=== PATIENT | female | born 1985 | race Caucasian/White ===

== ENCOUNTER 2017-07-14 06:13 | Inpatient (IN) | payer MEDICAID ==
[~2017-07-14 06:13] MED LIST: Citric Acid/Sodium Citrate Solution 30 ML Cup PO ONE; Lactated Ringers 1,000 ML IV SCH; Sodium Chloride 0.9% 10 ML Syringe FLUSH PRN; Tranexamic Acid 1,000 MG in Sodium Chloride 0.9% 100 ML IV PRN; ceFAZolin 2 GM in Premix Bag 1 BAG IV ONE
[2017-07-14] MEDS ORDERED: Ketorolac 30 MG/ML SDV IVPUSH ONE (06:14)
[2017-07-14] MEDS ORDERED: Morphine PF 1 MG/ML Amp ONE (06:14)
[2017-07-14] MEDS ORDERED: Ondansetron 4 MG/2 ML SDV IV ONE (06:14)
[2017-07-14] MEDS ORDERED: ePHEDrine 50 MG/ML SDV IV ONE (06:14)
[2017-07-14] MEDS ORDERED: Oxytocin/Normal Saline 30 UNIT/500 ML BAG IV ONE (06:14)
[2017-07-14] MEDS ORDERED: Lactated Ringers 1,000 ML IV ONE (06:14)
[2017-07-14] MEDS ORDERED: Oxytocin/Normal Saline 60 UNIT/1,000 ML BAG ONE (06:59)
[2017-07-14] MEDS ORDERED: Ibuprofen 800 MG Tab PO PRN (07:29)
[2017-07-14] MEDS ORDERED: Misoprostol 400 MCG (4 X 100 MCG TAB) RECTAL PRN (07:29)
[2017-07-14] MEDS ORDERED: Carboprost Tromethamine 250 MCG/1 ML Amp IM ONE (07:29)
[2017-07-14] MEDS ORDERED: Acetaminophen 325 MG Tab PO PRN (07:29)
[2017-07-14] MEDS ORDERED: Tranexamic Acid 1,000 MG in Sodium Chloride 0.9% 100 ML IV PRN (07:29)
[2017-07-14] MEDS ORDERED: Methylergonovine 0.2 MG/1 ML Amp IM PRN (07:29)
[2017-07-14] MEDS ORDERED: ePHEDrine 50 MG/ML SDV IVPUSH PRN (07:29)
[2017-07-14] MEDS ORDERED: Naloxone 2 MG/2 ML Syringe IVPUSH PRN (07:29)
[2017-07-14] MEDS ORDERED: diphenhydrAMINE 50 MG/ML SDV IVPUSH PRN (07:29)
[2017-07-14] MEDS ORDERED: Oxytocin/Normal Saline 30 UNIT/500 ML BAG IV SCH (08:00)
[2017-07-14] MEDS: Lactated Ringers 1,000 ML IV SCH ×2 (11:07→19:24)
[2017-07-14] MEDS: Simethicone 80 MG Tab.Chew PO SCH ×4 (11:10→21:18)
[2017-07-14] MEDS: Ketorolac 30 MG/ML SDV IVPUSH SCH ×2 (14:04→20:11)
[2017-07-14] MEDS: Ondansetron 4 MG/2 ML SDV IV PRN ×2 (14:14→20:15)
--- NOTE | 2017-07-14 16:31 | OR ---
DATE: 07/14/2017 PROCEDURE PERFORMED: Repeat low-transverse section. PREOPERATIVE DIAGNOSES: 1. 39 and 4/7 weeks' intrauterine . 2. 5, para 2-0-2-2. 3. Blood type A negative, rubella immune, group B strep negative. 4. History of x2. 5. History of therapeutic x2. 6. Anemia of with an admission hemoglobin of 10.7 as well as chronic iron-deficiency anemia. 7. Dental abscess. 8. Smoker. 9. History of gestational hypertension. 10.Late and insufficient care. POSTOPERATIVE DIAGNOSES: 1. 39 and 4/7 weeks' intrauterine . 2. 5, para 3-0-2-3. 3. Blood type A negative, rubella immune, group B strep negative. 4. History of x3. 5. History of therapeutic x2. 6. Anemia of with an admission hemoglobin of 10.7 as well as chronic iron-deficiency anemia. 7. Dental abscess. 8. Smoker. 9. History of gestational hypertension. 10.Late and insufficient care. 11.Delivery of viable female . BRIEF HISTORY: A 32-year-old female admitted for elective repeat section at term with the above-listed diagnosis, appropriately prepared and brought to the operating room. For the procedure, see history and physical for full details. CONSENT: Discussion was held with the patient, risk of of infection and plan for preoperative antibiotics, potential for significant bleeding or hemorrhage, and a blood transfusion may be required as well as its inherent risks. Discussed potential injury to skin, large blood vessels, nerves, veins, internal organs or other adjacent structures, even potential injury to the baby. Injury could be involving uterus, fallopian tubes, ovaries, intestines, bladder, or any other adjacent structures. She verbalized understanding. Appropriate consent forms were signed and can be found in the chart. SURGEON: Sienna Dave MD. BOTTLE ASSEMBLER: Pito Turner MD. SECOND TAKER OFF HEMP FIBER: Nanda Long MS-III PROCEDURE DETAILS: The patient was brought to the operating room and spinal anesthesia obtained. Medina indwelling catheter was then placed. Abdomen was prepped and draped in the normal sterile fashion. Pfannenstiel skin incision was made through the previous scar and carried down to the underlying fascia using cautery and blunt dissection. The fascia was incised in the midline and extended bilaterally with cautery. Superior fascial edge grasped with Piotr's, tented up, and rectus muscles dissected off bluntly and with cautery. Inferior fascial edge then grasped, tented up, and rectus muscles dissected off with cautery. The peritoneal cavity was entered with hemostats and proceeded with further blunt dissection. Medhat retractor was then placed and scarring on the uterus required creation of a bladder flap, which was carried out without incident. Low transverse uterine incision made with scalpel until the amniotic fluid sac was seen. Hysterotomy site extended using Castaneda method and the sac was then ruptured with Allis forceps. Attempted to bring the head up through the uterine incision; however, there was some difficulty, therefore vacuum assistance was called for and baby delivered readily thereafter. 's mouth and nose were bulb suctioned while the umbilical cord was doubly clamped and cut. Baby then taken over to the warmer for further evaluation. Placenta removed by manual extraction. Trailing membranes removed with ring forceps. Uterus cleaned with dry lap sponge, and hysterotomy site closed with a running lock suture of 0 Vicryl in the usual fashion. This layer was hemostatic, and a second layer was not indicated. Medhat retractor removed. Pericolic gutters cleared of all clots and debris hysterotomy site was irrigated and reinspected, and remained hemostatic due to bulging of the intestines. Peritoneal layer was closed with a running stitch of 0 Vicryl in the usual fashion. This layer was then irrigated and fascia closed with a running stitch of 0 looped PDS in the usual fashion. Subcutaneous tissues were then irrigated and any small bleeders controlled with cautery. Skin was closed with mani. The patient tolerated the procedure well. URINE OUTPUT: 350 mL clear. IV FLUIDS: 1600 mL of crystalloid. ESTIMATED BLOOD LOSS: 500 mL. FINDINGS: The baby was delivered at 8:17 a.m., she is a female, score of 9 and 9, weight 2795 g, 6 pounds 2 ounces, length 17-1/2 inches. DISPOSITION: Mother to remain in the PACU. Baby to go to the nursery for further care at this time. [facility] /[id number] [facility]
[2017-07-14] MEDS: Ferrous Sulfate 325 MG Tab PO SCH (21:18)
[2017-07-15] MEDS: Ketorolac 30 MG/ML SDV IVPUSH SCH (01:47)
[2017-07-15] MEDS: Prenatal Multivitamin with Calcium/Folic Acid/Iron Tab PO SCH (09:04)
[2017-07-15] MEDS: Docusate Sodium 100 MG Cap PO PRN (09:04)
[2017-07-15] MEDS: Ferrous Sulfate 325 MG Tab PO SCH ×2 (09:04→21:23)
[2017-07-15] MEDS: Acetaminophen/oxyCODONE 325-5 MG Tab PO PRN ×3 (09:05→21:23)
[2017-07-15] MEDS: Simethicone 80 MG Tab.Chew PO SCH ×4 (09:05→21:23)
--- NOTE | 2017-07-15 10:41 | PN ---
DATE: 07/15/2017 SUBJECTIVE: A 32-year-old, 5, now para 3-0-2-3, status post repeat section performed yesterday morning, and she is doing quite well. She has been up and ambulating, tolerating a regular diet. She feels she does not need the pain medications as often as they are ordered. She did use some Zofran last night for nausea. Medina catheter remains in place. She has not had a bowel movement. She is very anxious to get home and be with her other children and even requesting discharge today. No chest pain or shortness of breath. No symptoms of preeclampsia. No other concerns or complaints at this time. OBJECTIVE: Vital Signs: Temperature is 98.5, pulse 85, blood pressure 121/74, respiratory rate of 16, and O2 saturations 99% on room air. Heart: Regular without murmur. Lungs: Clear to auscultation bilaterally. Abdomen: Soft and nontender. Positive bowel sounds in the upper quadrants. Dressing is clean, dry, and intact. Extremities: No edema, erythema, or tenderness noted. LABORATORY DATA: Hemoglobin is down to 9.1, and platelets are down to 146. ASSESSMENT: 1. Status post repeat low transverse section without complications. 2. Iron-deficiency anemia, anemia of blood loss, and anemia of . 3. Smoker. PLAN: Continue routine postoperative cares. Anticipating discharge home tomorrow. Remove Medina catheter later today and allow her to get up and shower. Discussed with her the importance of making sure we stay on top of the pain and also that we need to make sure she continues to meet other discharge criteria. [facility] /[id number]
[2017-07-15] MEDS: Ibuprofen 800 MG Tab PO PRN (16:57)
[2017-07-16] MEDS: Ibuprofen 800 MG Tab PO PRN (04:05)
[2017-07-16] MEDS: Acetaminophen/oxyCODONE 325-5 MG Tab PO PRN ×2 (04:11→08:27)
[2017-07-16] MEDS: Ferrous Sulfate 325 MG Tab PO SCH (08:27)
[2017-07-16] MEDS: Prenatal Multivitamin with Calcium/Folic Acid/Iron Tab PO SCH (08:27)
[2017-07-16] MEDS: Docusate Sodium 100 MG Cap PO PRN (08:27)
[2017-07-16] MEDS: Simethicone 80 MG Tab.Chew PO SCH ×2 (08:34→12:26)
== END 2017-07-16 12:30 | disposition home or self-care (01) | DRG 765 ==
LOC: DL.OB 06:13 → OBSVTOIN 08:17
PROVIDERS: ADMIT Family Medicine; ATTEND Family Medicine
PROC: 10D00Z1 Extraction of Products of Conception, Low, Open Approach (ICD-10-PCS; principal; 2017-07-14)
DX: O34.211 Maternal care for low transverse scar from previous cesarean delivery (principal); D62 Acute posthemorrhagic anemia; Z37.0 Single live birth; N85.8 Other specified noninflammatory disorders of uterus; O99.334 Smoking (tobacco) complicating childbirth; F17.200 Nicotine dependence, unspecified, uncomplicated; O99.02 Anemia complicating childbirth; Z3A.39 39 weeks gestation of pregnancy; D50.9 Iron deficiency anemia, unspecified; O90.81 Anemia of the puerperium
CPT/HCPCS: 01961; 36415; 85025; 85027; 85461; 86850; 86900; 86901; A9270-GY; J0690; J1885; J2274; J2405; J2590; J2790; J7120

== ENCOUNTER 2020-10-31 09:58 | Inpatient (IN) | payer MEDICAID ==
[2020-10-31] MEDS ORDERED: Oxytocin/Normal Saline 30 UNIT/500 ML BAG IV ONE (09:59)
[2020-10-31] MEDS ORDERED: Oxytocin/Normal Saline 60 UNIT/1,000 ML BAG ONE (10:14)
[2020-10-31] MEDS ORDERED: Sodium Chloride 0.9% 10 ML Syringe FLUSH PRN (10:34)
[2020-10-31] MEDS ORDERED: Carboprost Tromethamine 250 MCG/1 ML Amp IM PRN (10:34)
[2020-10-31] MEDS ORDERED: Tranexamic Acid 1,000 MG in Sodium Chloride 0.9% 100 ML IV PRN (10:34)
[2020-10-31] MEDS ORDERED: Citric Acid/Sodium Citrate Solution 30 ML Cup PO ONE (10:34)
[2020-10-31] MEDS ORDERED: Oxytocin/Normal Saline 30 UNIT/500 ML BAG IV SCH (10:45)
[2020-10-31] MEDS ORDERED: Lactated Ringers 1,000 ML IV SCH ×3 (10:45→14:30)
[2020-10-31] MEDS ORDERED: Morphine PF 10 MG/10 ML SDV ONE (11:30)
[2020-10-31] MEDS ORDERED: Lactated Ringers 1,000 ML IV ONE (11:30)
[2020-10-31] MEDS ORDERED: Ketorolac 30 MG/ML SDV IVPUSH ONE (11:30)
[2020-10-31] MEDS ORDERED: Tranexamic Acid 1,000 MG in Sodium Chloride 0.9% 100 ML IV ONE (11:30)
[2020-10-31] MEDS ORDERED: ceFAZolin 2 GM in Premix Bag 1 BAG IV ONE (12:15)
[2020-10-31] MEDS ORDERED: diphenhydrAMINE 50 MG/ML SDV IVPUSH PRN (14:21)
[2020-10-31] MEDS ORDERED: Acetaminophen 325 MG Tab PO PRN (14:21)
[2020-10-31] MEDS ORDERED: Methylergonovine 0.2 MG/1 ML Amp IM PRN (14:21)
[2020-10-31] MEDS ORDERED: Acetaminophen/oxyCODONE 325-5 MG Tab PO PRN (14:21)
[2020-10-31] MEDS ORDERED: ePHEDrine 50 MG/ML SDV IVPUSH PRN (14:21)
[2020-10-31] MEDS ORDERED: Ondansetron 4 MG/2 ML SDV IVPUSH PRN (14:21)
[2020-10-31] MEDS ORDERED: Misoprostol 400 MCG (4 X 100 MCG TAB) RECTAL PRN (14:21)
[2020-10-31] MEDS ORDERED: Naloxone 2 MG/2 ML Syringe IVPUSH PRN (14:21)
[2020-10-31] MEDS: Simethicone 80 MG Tab.Chew PO SCH ×2 (17:00→21:34)
[2020-10-31] MEDS: Ketorolac 30 MG/ML SDV IVPUSH SCH (19:23)
[2020-10-31] MEDS: Docusate Sodium 100 MG Cap PO PRN (21:34)
[2020-11-01] MEDS: Ketorolac 30 MG/ML SDV IVPUSH SCH ×2 (01:05→08:02)
--- NOTE | 2020-11-01 07:30 | PCM.PNPP ---
<Nupur Bustamante H - Last Filed: 11/01/20 07:24> - General Info Date of Service: 11/01/20 Functional Status: Reports: Pain Controlled, Tolerating Diet, Ambulating. Denies: Urinating (Catheter still in place. ) - Review of Systems General: Reports: No Symptoms HEENT: Reports: No Symptoms Pulmonary: Reports: No Symptoms Cardiovascular: Reports: No Symptoms Gastrointestinal: Reports: Abdominal Pain (Mild incisional pain), Flatus Musculoskeletal: Reports: No Symptoms Skin: Reports: No Symptoms Psychiatric: Reports: No Symptoms - Patient Data Vital Signs - Most Recent: Last Vital Signs Temp 98.3 F 11/01/20 04:00 Pulse 84 11/01/20 04:00 Resp 16 11/01/20 04:00 BP 134/78 11/01/20 04:00 Pulse Ox 100 10/31/20 20:00 Weight - Most Recent: 86.183 kg I&O - Last 24 Hours: Intake & Output 10/31/20 11/01/20 11/01/20 22:59 06:59 14:59 Intake Total 3400 1000 Output Total 250 1400 Balance 3150 -400 Lab Results - Last 24 Hours: Laboratory Results - last 24 hr 10/31/20 10/31/20 10/31/20 Range/Units 10:20 10:43 10:43 WBC 8.1 (5.0-10.0) 10^3/uL RBC 2.99 L (4.2-5.4) 10^6/uL Hgb 9.8 L D (12.0-16.0) g/dL Hct 29.8 L (37.0-47.0) % MCV 99.7 D (80-100) fL MCH 32.8 (27.0-34.0) pg MCHC 32.9 L (33.0-35.0) g/dL Plt Count 144 L D (150-450) 10^3/uL Neut % (Auto) 72.3 (42.2-75.2) % Lymph % (Auto) 18.0 L (20.5-50.1) % Harris % (Auto) 8.4 H (2-8) % Eos % (Auto) 1.1 (1.0-3.0) % Baso % (Auto) 0.2 (0.0-1.0) % SARS-CoV-2 RNA (SOHAIL) Negative (NEGATIVE) Blood Type A NEGATIVE Gel Antibody Screen Negative 11/01/20 Range/Units 05:55 WBC 6.4 (5.0-10.0) 10^3/uL RBC 2.47 L (4.2-5.4) 10^6/uL Hgb 8.0 L D (12.0-16.0) g/dL Hct 24.7 L (37.0-47.0) % MCV 100.0 (80-100) fL MCH 32.4 (27.0-34.0) pg MCHC 32.4 L (33.0-35.0) g/dL Plt Count 160 (150-450) 10^3/uL Neut % (Auto) (42.2-75.2) % Lymph % (Auto) (20.5-50.1) % Harris % (Auto) (2-8) % Eos % (Auto) (1.0-3.0) % Baso % (Auto) (0.0-1.0) % SARS-CoV-2 RNA (SOHAIL) (NEGATIVE) Blood Type Gel Antibody Screen Med Orders - Current: Current Medications Acetaminophen (Acetaminophen 325 Mg Tab) 650 mg PO Q6H PRN PRN Reason: Mild Pain (1-3) or Fever Carboprost Tromethamine (Carboprost Tromethamine 250 Mcg/1 Ml Amp) 250 mcg IM ASDIRECTED PRN PRN Reason: Excessive vaginal bleeding Diphenhydramine HCl (Diphenhydramine 50 Mg/Ml Sdv) 25 mg IVPUSH Q6H PRN PRN Reason: Itching or Nausea Docusate Sodium (Docusate Sodium 100 Mg Cap) 100 mg PO Q12H PRN PRN Reason: Constipation Last Admin: 10/31/20 21:34 Dose: 100 mg Documented by: Ephedrine Sulfate (Ephedrine 50 Mg/Ml Sdv) 5 mg IVPUSH SEECOMMENT PRN PRN Reason: Other Tranexamic Acid 1,000 mg/ (Sodium Chloride) 110 mls @ 660 mls/hr IV ONETIME PRN PRN Reason: Bleeding Oxytocin/Sodium Chloride (Pitocin In Ns 30 Unit/500 Ml) 30 unit in 500 mls @ 2 mls/hr IV TITRATE [facility]; Protocol Last Titration: 10/31/20 15:30 Dose: 0 munits/min, 0 mls/hr Documented by: Lactated Ringer's (Ringers, Lactated) 1,000 mls @ 125 mls/hr IV ASDIRECTED [facility] Last Admin: 10/31/20 16:20 Dose: 125 mls/hr Documented by: Ibuprofen (Ibuprofen 800 Mg Tab) 800 mg PO Q8H PRN PRN Reason: Cramping Methylergonovine Maleate (Methylergonovine 0.2 Mg/1 Ml Amp) 0.2 mg IM ONETIME PRN PRN Reason: Excessive Vaginal Bleeding Misoprostol (Misoprostol 400 Mcg (4 X 100 Mcg Tab)) 800 mcg RECTAL ASDIRECTED PRN PRN Reason: Excessive bleeding Naloxone HCl (Naloxone 2 Mg/2 Ml Syringe) 0.1 mg IVPUSH SEECOMMENT PRN PRN Reason: Respiratory Depression Ondansetron HCl (Ondansetron 4 Mg/2 Ml Sdv) 4 mg IVPUSH Q4H PRN PRN Reason: Nausea/Vomiting Oxycodone/Acetaminophen (Acetaminophen/Oxycodone 325-5 Mg Tab) 1 tab PO Q4H PRN PRN Reason: Pain (moderate 4-6) Oxycodone/Acetaminophen (Acetaminophen/Oxycodone 325-5 Mg Tab) 2 tab PO Q4H PRN PRN Reason: Pain (moderate 4-6) Prenat Multivit/Case Assembler/Iron/Folic Ac ( Multivitamin With Calcium/Folic Acid/Iron Tab) 1 each PO DAILY [facility] Simethicone (Simethicone 80 Mg Tab.Chew) 160 mg PO QID [facility] Last Admin: 10/31/20 21:34 Dose: 160 mg Documented by: Sodium Chloride (Sodium Chloride 0.9% 10 Ml Syringe) 10 ml FLUSH ASDIRECTED PRN PRN Reason: Keep Vein Open Last Admin: 11/01/20 01:09 Dose: 10 ml Documented by: Discontinued Medications Citric Acid/Sodium Citrate (Citric Acid/Sodium Citrate Solution 30 Ml Cup) 30 ml PO ONETIME ONE Stop: 10/31/20 10:35 Last Admin: 10/31/20 11:21 Dose: 30 ml Documented by: Cefazolin Sodium/Dextrose (Ancef 2 Gm/50 Ml) Confirm Administered Dose 50 mls @ as directed .ROUTE .STK-MED ONE Stop: 10/31/20 10:15 Oxytocin/Sodium Chloride (Pitocin In Ns 30 Unit/500 Ml) Confirm Administered Dose 60 unit in 1,000 mls @ as directed .ROUTE .STK-MED ONE Stop: 10/31/20 10:15 Lactated Ringer's (Ringers, Lactated) 1,000 mls @ 125 mls/hr IV ASDIRECTED [facility] Last Admin: 10/31/20 11:27 Dose: 125 mls/hr Documented by: Lactated Ringer's (Ringers, Lactated) 1,000 mls @ 500 mls/hr IV .BOLUS [facility] Last Admin: 10/31/20 10:30 Dose: 500 mls/hr Documented by: Cefazolin Sodium/Dextrose 2 gm (/ Premix) 50 mls @ 100 mls/hr IV ONETIME ONE Stop: 10/31/20 12:44 Last Admin: 10/31/20 11:35 Dose: 100 mls/hr Documented by: Ketorolac Tromethamine (Ketorolac 30 Mg/Ml Sdv) 15 mg IVPUSH Q6H [facility] Stop: 11/01/20 07:01 Last Admin: 11/01/20 01:05 Dose: 15 mg Documented by: - Interaction Infant Disposition, : to Nursery Infant Feeding: Bottle Fed Infant Support Person: Significant Other - Recovery Exam Fundal Tone: Firm Fundal Level: 1 Fingerbreadths Below Umbilicus Fundal Placement: Midline Lochia Amount: Small Lochia Color: Rubra/Red Episiotomy/Laceration: None Bladder Status: Nonpalpable, Indwelling Catheter in Place Urinary Elimination: Indwelling Catheter - Exam General: Alert, Oriented, Cooperative, No Acute Distress HEENT: EOMI Neck: Supple Lungs: Clear to Auscultation, Normal Respiratory Effort Cardiovascular: Regular Rate, Regular Rhythm GI/Abdominal Exam: Normal Bowel Sounds, Soft, Tender (Mild) Extremities: Normal Inspection, Normal Range of Motion, Non-Tender, Pedal Edema (Trace) Skin: Warm Wound/Incisions: Healing Well, Dressing Dry and Intact, No Drainage, Other (Steri strips in place with moderate shadowing. Small shadowing present on dressing. No signs of infection. ). No: Erythema Psy/Mental Status: Alert, Normal Affect, Normal Mood - Problem List & Annotations (1) Status post repeat low transverse section SNOMED Code(s): 773436298, 99373494, 350675878, 548959701, 689119829 Code(s): Z98.891 - HISTORY OF UTERINE SCAR FROM PREVIOUS SURGERY Status: Acute - Problem List Review Problem List Initiated/Reviewed/Updated: Yes - Assessment Assessment:: Patient is POD #1 s/p RLTCS. Doing well. Formula feeding. Minimal pain and bleeding. - Plan Plan:: Continue routine post-operative cares. Formula Feeding Up to bathroom. Goal for catheter removal today if tolerates ambulation and urinates appropriately. Plan for discharge on POD#2-3. Patient was seen and evaluated by myself and Dr. Eulalia Lugo. Assessment and Plan is under advisement of Dr. Lugo. Nupur Bustamante MD PGY-II <Eulalia Lugo Anuradha - Last Filed: 11/08/20 13:30> - Patient Data Vital Signs - Most Recent: Last Vital Signs Temp 36.9 C 11/02/20 08:00 Pulse 96 11/02/20 08:00 Resp 20 11/02/20 08:00 BP 155/101 H 11/02/20 08:00 Pulse Ox 100 11/02/20 08:00 Med Orders - Current: Current Medications Discontinued Medications Acetaminophen (Acetaminophen 325 Mg Tab) 650 mg PO Q6H PRN PRN Reason: Mild Pain (1-3) or Fever Carboprost Tromethamine (Carboprost Tromethamine 250 Mcg/1 Ml Amp) 250 mcg IM ASDIRECTED PRN PRN Reason: Excessive vaginal bleeding Citric Acid/Sodium Citrate (Citric Acid/Sodium Citrate Solution 30 Ml Cup) 30 ml PO ONETIME ONE Stop: 10/31/20 10:35 Last Admin: 10/31/20 11:21 Dose: 30 ml Documented by: Diphenhydramine HCl (Diphenhydramine 50 Mg/Ml Sdv) 25 mg IVPUSH Q6H PRN PRN Reason: Itching or Nausea Docusate Sodium (Docusate Sodium 100 Mg Cap) 100 mg PO Q12H PRN PRN Reason: Constipation Last Admin: 11/01/20 08:00 Dose: 100 mg Documented by: Ephedrine Sulfate (Ephedrine 50 Mg/Ml Sdv) 5 mg IVPUSH SEECOMMENT PRN PRN Reason: Other Cefazolin Sodium/Dextrose (Ancef 2 Gm/50 Ml) Confirm Administered Dose 50 mls @ as directed .ROUTE .STK-MED ONE Stop: 10/31/20 10:15 Oxytocin/Sodium Chloride (Pitocin In Ns 30 Unit/500 Ml) Confirm Administered Dose 60 unit in 1,000 mls @ as directed .ROUTE .STK-MED ONE Stop: 10/31/20 10:15 Lactated Ringer's (Ringers, Lactated) 1,000 mls @ 125 mls/hr IV ASDIRECTED [facility] Last Admin: 10/31/20 11:27 Dose: 125 mls/hr Documented by: Lactated Ringer's (Ringers, Lactated) 1,000 mls @ 500 mls/hr IV .BOLUS [facility] Last Admin: 10/31/20 10:30 Dose: 500 mls/hr Documented by: Tranexamic Acid 1,000 mg/ (Sodium Chloride) 110 mls @ 660 mls/hr IV ONETIME PRN PRN Reason: Bleeding Oxytocin/Sodium Chloride (Pitocin In Ns 30 Unit/500 Ml) 30 unit in 500 mls @ 2 mls/hr IV TITRATE KVNG; Protocol Last Titration: 10/31/20 15:30 Dose: 0 munits/min, 0 mls/hr Documented by: Cefazolin Sodium/Dextrose 2 gm (/ Premix) 50 mls @ 100 mls/hr IV ONETIME ONE Stop: 10/31/20 12:44 Last Admin: 10/31/20 11:35 Dose: 100 mls/hr Documented by: Lactated Ringer's (Ringers, Lactated) 1,000 mls @ 125 mls/hr IV ASDIRECTED [facility] Last Admin: 10/31/20 16:20 Dose: 125 mls/hr Documented by: Oxytocin/Sodium Chloride (Pitocin In Ns 30 Unit/500 Ml) 30 unit in 500 mls @ as directed IV .STK-MED ONE Stop: 10/31/20 10:00 Lactated Ringer's (Ringers, Lactated) 1,000 mls @ as directed IV .STK-MED ONE Stop: 10/31/20 11:31 Tranexamic Acid 1,000 mg/ (Sodium Chloride) 110 mls @ as directed IV .STK-MED ONE Stop: 10/31/20 11:31 Ibuprofen (Ibuprofen 800 Mg Tab) 800 mg PO Q8H PRN PRN Reason: Cramping Last Admin: 11/02/20 04:14 Dose: 800 mg Documented by: Ketorolac Tromethamine (Ketorolac 30 Mg/Ml Sdv) 15 mg IVPUSH Q6H [facility] Stop: 11/01/20 07:01 Last Admin: 11/01/20 08:02 Dose: 15 mg Documented by: Ketorolac Tromethamine (Ketorolac 30 Mg/Ml Sdv) 30 mg IVPUSH .STK-MED ONE Stop: 10/31/20 11:31 Methylergonovine Maleate (Methylergonovine 0.2 Mg/1 Ml Amp) 0.2 mg IM ONETIME PRN PRN Reason: Excessive Vaginal Bleeding Misoprostol (Misoprostol 400 Mcg (4 X 100 Mcg Tab)) 800 mcg RECTAL ASDIRECTED PRN PRN Reason: Excessive bleeding Morphine Sulfate (Morphine Pf 10 Mg/10 Ml Sdv) 0.2 mg .XX .STK-MED ONE Stop: 10/31/20 11:31 Naloxone HCl (Naloxone 2 Mg/2 Ml Syringe) 0.1 mg IVPUSH SEECOMMENT PRN PRN Reason: Respiratory Depression Ondansetron HCl (Ondansetron 4 Mg/2 Ml Sdv) 4 mg IVPUSH Q4H PRN PRN Reason: Nausea/Vomiting Oxycodone/Acetaminophen (Acetaminophen/Oxycodone 325-5 Mg Tab) 1 tab PO Q4H PRN PRN Reason: Pain (moderate 4-6) Oxycodone/Acetaminophen (Acetaminophen/Oxycodone 325-5 Mg Tab) 2 tab PO Q4H PRN PRN Reason: Pain (moderate 4-6) Last Admin: 11/02/20 08:27 Dose: 2 tab Documented by: Prenat Multivit/[place]/Iron/Folic Ac ( Multivitamin With Calcium/Folic Acid/Iron Tab) 1 each PO DAILY [facility] Last Admin: 11/02/20 08:27 Dose: 1 each Documented by: Simethicone (Simethicone 80 Mg Tab.Chew) 160 mg PO QID [facility] Last Admin: 11/02/20 08:27 Dose: 160 mg Documented by: Sodium Chloride (Sodium Chloride 0.9% 10 Ml Syringe) 10 ml FLUSH ASDIRECTED PRN PRN Reason: Keep Vein Open Last Admin: 11/01/20 01:09 Dose: 10 ml Documented by: - Plan Plan:: Victor Manuel with resident assessment and plan. Eulalia Lugo MD
[2020-11-01] MEDS: Prenatal Multivitamin with Calcium/Folic Acid/Iron Tab PO SCH (08:00)
[2020-11-01] MEDS: Simethicone 80 MG Tab.Chew PO SCH ×4 (08:00→21:01)
[2020-11-01] MEDS: Docusate Sodium 100 MG Cap PO PRN (08:00)
[2020-11-01] MEDS: Ibuprofen 800 MG Tab PO PRN (16:59)
[2020-11-01] MEDS: Acetaminophen/oxyCODONE 325-5 MG Tab PO PRN (21:01)
[2020-11-02] MEDS: Ibuprofen 800 MG Tab PO PRN (04:14)
[2020-11-02] MEDS: Acetaminophen/oxyCODONE 325-5 MG Tab PO PRN ×2 (04:15→08:27)
[2020-11-02] MEDS: Simethicone 80 MG Tab.Chew PO SCH (08:27)
[2020-11-02] MEDS: Prenatal Multivitamin with Calcium/Folic Acid/Iron Tab PO SCH (08:27)
--- NOTE | 2020-11-08 13:19 | PCM.HPR ---
H & P Addendum review - H & P Addendum Review Date of Original H & P: 10/30/20 Date Reviewed: 10/31/20 Time Reviewed: 10:15 Patient was Examined: No Changes
--- NOTE | 2020-11-08 13:29 | PCM.PRNOTE ---
- Free Text/Narrative Note: Section Operative Report Date of Surgery: 10/31/2020 Surgeon: Eulalia Lugo MD Cofounder: MD Nupur Oh, PGY2 Pre-Operative Diagnosis: at 39w0d History of section x3 Post-Operative Diagnosis: Same Stable uterine rupture Procedure Performed: Repeat low transverse section Anesthesia: Spinal EBL: 400 mL IVF: 1500 mL Drains: Mednia catheter with 125 mL of urine output Specimens: None Complications: None apparent Findings: Normal tubes and ovaries. Uterus with very thin lower uterine segment and 3 cm rupture with amniotic sac protruding into the abdominal cavity. Indication and Consent: The patient presented to floor today for scheduled at term due to history of prior and desire for elective repeat . The patient understood that the risks of section include, but are not limited to, visceral or vascular injury, infection, blood loss and need for blood transfusion, prolonged hospitalization, and reoperation. The patient again stated understanding and desired to proceed. All questions were answered. Procedure in Detail: The patient was taken to the operating room where spinal anesthesia was placed and found to be adequate. 2 grams of cefazolin (Ancef) were given for infection prophylaxis. She was then prepped and draped in routine fashion in dorsal supine position with a left bae tilt. Medina catheter and pneumoboots were placed. A Pfannenstiel skin incision was made with a scalpel. The incision was carried down to the fascia sharply. The fascia was incised and extended laterally. The inferior aspect of the fascia was grasped with Piotr clamps; the underlying rectus muscle and pyramidalis was dissected off with sharp and blunt technique. In a similar fashion, the superior aspect of the fascia was elevated with Piotr clamps and the rectus muscle was dissected off. Hemostasis was achieved with the Bovie. The rectus musculature was in the midline down to the level of the pubic symphysis. Pre-peritoneal fatty tissue was bluntly dissected to expose the peritoneum. The peritoneum was found to be free of adherent bowel or bladder tissue and entered bluntly. The peritoneal opening was then extended superiorly and inferiorly to the bladder reflection with good visualization of the bladder. The Medhat retractor was inserted. Intraabdominal survey revealed scant, clear peritoneal fluid and thinned-out lower uterine segment. A 3-4 cm uterine rupture was noted. No bleeding noted. Amniotic sac was noted to be protruding about 1 cm into the abdominal cavity. The vesicouterine peritoneum was opened with a pickup and mets, and the bladder flap was developed. The lower uterine segment was incised with a scalpel. The amniotic sac was ruptured with an Allis clamp and clear fluid was noted. The uterine incision was extended bluntly with lateral and upward traction. The fetus was in cephalic position. The head was elevated out of the maternal pelvis with special attention paid to avoid using the uterine incision as a fulcrum. Gentle fundal pressure was applied once the head was brought into the incision. A low-profile vacuum was used to assist with delivery of the head. Due to maternal scar tissue and size, delivery was moderately difficult with about 2.5 minutes between uterine incision and delivery of the infant. Bulb suctioning of the infant's nose and mouth was performed on the operative field. Cord blood was collected.The cord was clamped and cut in standard fashion, and the was handed over to the awaiting nursery staff. IV oxytocin was initiated to facilitate uterine contractions. The placenta was delivered intact with manual message of the uterine fundus along with gentle cord traction. The inside of the uterus was gently wiped with a lap sponge to assure complete removal of remaining products of conception. The uterine incision was closed with 0 -Vicryl suture in a running locked fashion. A second imbricating layer of 0-Monocryl was also placed. The incision was inspected and hemostasis was achieved. The ovaries and tubes were visualized and found to be normal. The uterus, tubes, and ovaries were returned to the abdominal cavity. The blood clots and fluid were wiped out of the abdomen and pelvis with moist laparotomy sponges. The uterine incision was re-inspected along with all other incised surfaces and good hemostasis was not confirmed. Two figure-of-8 sutures and cautery were used to achieve hemostasis. The Medhat retractor was removed. Peritoneum was reapproximated using 2-0 Vicryl The fascia was then closed with 2-0 looped PDS suture with care not to include any underlying abdominal contents. The skin was closed with 4-0 Monocryl suture on a Fan needle in a subcuticular fashion. Sponge and instrument counts were reported as correct times two. Pt tolerated procedure well and was taken to PACU in stable condition. Eulalia Lugo MD
--- NOTE | 2020-11-08 13:31 | PCM.DCSUM1 ---
Discharge Summary - Hospital Course Free Text/Narrative:: POD #2 s/p repeat section Diagnosis: Stroke: No - Discharge Data Discharge Date: 11/02/20 Discharge Disposition: Home, Self-Care 01 Condition: Good - Referral to Home Health Primary Care Physician: Nelson Lugo MD - Patient Summary/Data Operative Procedure(s) Performed: Repeat low transverse section Complications: Stable uterine rupture Consults: None Labs Pending at D/C: None Recommended Follow-up Testing/Procedures: None Planned Operative Procedure(s) after DC: None Hospital Course: Please see subjective section. - Patient Instructions Diet: Usual Diet as Tolerated Activity: As Tolerated, No Lifting Over 20 Pounds Driving: Do Not Drive (while on pain medication) Showering/Bathing: May Shower Wound/Incision Care: Keep Operative Site/Wound Site Clean and Dry Notify Provider of: Fever, Increased Pain, Swelling and Redness, Drainage, Nausea and/or Vomiting - Discharge Plan *PRESCRIPTION DRUG MONITORING PROGRAM REVIEWED*: No *COPY OF PRESCRIPTION DRUG MONITORING REPORT IN PATIENT TONIA: No Home Medications: Home Meds #103/Iron Fumarate/Fa [ ] 1 tab PO DAILY 07/14/17 [History] Acetaminophen [Tylenol] 650 mg PO Q6H PRN tablet 11/02/20 [Rx] Acetaminophen/oxyCODONE [Percocet 325-5 MG] 1 tab PO Q4H PRN tablet 11/02/20 [Rx] Docusate Sodium [Colace] 100 mg PO Q12H PRN cap 11/02/20 [Rx] Ibuprofen [Motrin] 800 mg PO Q8H PRN tablet 11/02/20 [Rx] Patient Handouts: Hypertension During , [id number], Care After Delivery, Incision Care, Adult - Discharge Summary/Plan Comment DC Time >30 min.: No Discharge Summary/Plan Comment: Discharge home today. Follow-up with Dr. Gomez in 2 weeks for incision check. Patient advised multiple times during her hospital stay that due to her stable uterine rupture, the risk of rupture with subsequent pregnancies is very high. I do not recommend that she consider additional pregnancies. Reasons to return to the clinic or present to the ED were reviewed, and all questions were answered. Eulalia Lugo MD - General Info Date of Service: 11/02/20 Subjective Update: Doing well. Tolerating a general diet. Ambulating without symptoms. Voiding and passing gas. No fevers, chills, headaches dizziness or lightheadedness. BP was elevated this morning. PIH labs unremarkable so was started on labetalol. No concerns per patient or per nursing staff. Functional Status: Reports: Pain Controlled, Tolerating Diet, Ambulating, Urinating. Denies: New Symptoms - Review of Systems General: Reports: No Symptoms HEENT: Reports: No Symptoms Pulmonary: Reports: No Symptoms Cardiovascular: Reports: No Symptoms Gastrointestinal: Reports: No Symptoms Genitourinary: Reports: No Symptoms Musculoskeletal: Reports: No Symptoms Skin: Reports: No Symptoms - Patient Data Vitals - Most Recent: Last Vital Signs Temp 36.9 C 11/02/20 08:00 Pulse 96 11/02/20 08:00 Resp 20 11/02/20 08:00 BP 155/101 H 11/02/20 08:00 Pulse Ox 100 11/02/20 08:00 Weight - Most Recent: 86.183 kg Med Orders - Current: Current Medications Discontinued Medications Acetaminophen (Acetaminophen 325 Mg Tab) 650 mg PO Q6H PRN PRN Reason: Mild Pain (1-3) or Fever Carboprost Tromethamine (Carboprost Tromethamine 250 Mcg/1 Ml Amp) 250 mcg IM ASDIRECTED PRN PRN Reason: Excessive vaginal bleeding Citric Acid/Sodium Citrate (Citric Acid/Sodium Citrate Solution 30 Ml Cup) 30 ml PO ONETIME ONE Stop: 10/31/20 10:35 Last Admin: 10/31/20 11:21 Dose: 30 ml Documented by: Diphenhydramine HCl (Diphenhydramine 50 Mg/Ml Sdv) 25 mg IVPUSH Q6H PRN PRN Reason: Itching or Nausea Docusate Sodium (Docusate Sodium 100 Mg Cap) 100 mg PO Q12H PRN PRN Reason: Constipation Last Admin: 11/01/20 08:00 Dose: 100 mg Documented by: Ephedrine Sulfate (Ephedrine 50 Mg/Ml Sdv) 5 mg IVPUSH SEECOMMENT PRN PRN Reason: Other Cefazolin Sodium/Dextrose (Ancef 2 Gm/50 Ml) Confirm Administered Dose 50 mls @ as directed .ROUTE .STK-MED ONE Stop: 10/31/20 10:15 Oxytocin/Sodium Chloride (Pitocin In Ns 30 Unit/500 Ml) Confirm Administered Dose 60 unit in 1,000 mls @ as directed .ROUTE .STK-MED ONE Stop: 10/31/20 10:15 Lactated Ringer's (Ringers, Lactated) 1,000 mls @ 125 mls/hr IV ASDIRECTED KVNG Last Admin: 10/31/20 11:27 Dose: 125 mls/hr Documented by: Lactated Ringer's (Ringers, Lactated) 1,000 mls @ 500 mls/hr IV .BOLUS KVNG Last Admin: 10/31/20 10:30 Dose: 500 mls/hr Documented by: Tranexamic Acid 1,000 mg/ (Sodium Chloride) 110 mls @ 660 mls/hr IV ONETIME PRN PRN Reason: Bleeding Oxytocin/Sodium Chloride (Pitocin In Ns 30 Unit/500 Ml) 30 unit in 500 mls @ 2 mls/hr IV TITRATE KVNG; Protocol Last Titration: 10/31/20 15:30 Dose: 0 munits/min, 0 mls/hr Documented by: Cefazolin Sodium/Dextrose 2 gm (/ Premix) 50 mls @ 100 mls/hr IV ONETIME ONE Stop: 10/31/20 12:44 Last Admin: 10/31/20 11:35 Dose: 100 mls/hr Documented by: Lactated Ringer's (Ringers, Lactated) 1,000 mls @ 125 mls/hr IV ASDIRECTED KVNG Last Admin: 10/31/20 16:20 Dose: 125 mls/hr Documented by: Oxytocin/Sodium Chloride (Pitocin In Ns 30 Unit/500 Ml) 30 unit in 500 mls @ as directed IV .STK-MED ONE Stop: 10/31/20 10:00 Lactated Ringer's (Ringers, Lactated) 1,000 mls @ as directed IV .STK-MED ONE Stop: 10/31/20 11:31 Tranexamic Acid 1,000 mg/ (Sodium Chloride) 110 mls @ as directed IV .STK-MED ONE Stop: 10/31/20 11:31 Ibuprofen (Ibuprofen 800 Mg Tab) 800 mg PO Q8H PRN PRN Reason: Cramping Last Admin: 11/02/20 04:14 Dose: 800 mg Documented by: Ketorolac Tromethamine (Ketorolac 30 Mg/Ml Sdv) 15 mg IVPUSH Q6H [facility] Stop: 11/01/20 07:01 Last Admin: 11/01/20 08:02 Dose: 15 mg Documented by: Ketorolac Tromethamine (Ketorolac 30 Mg/Ml Sdv) 30 mg IVPUSH .STK-MED ONE Stop: 10/31/20 11:31 Methylergonovine Maleate (Methylergonovine 0.2 Mg/1 Ml Amp) 0.2 mg IM ONETIME PRN PRN Reason: Excessive Vaginal Bleeding Misoprostol (Misoprostol 400 Mcg (4 X 100 Mcg Tab)) 800 mcg RECTAL ASDIRECTED PRN PRN Reason: Excessive bleeding Morphine Sulfate (Morphine Pf 10 Mg/10 Ml Sdv) 0.2 mg .XX .STK-MED ONE Stop: 10/31/20 11:31 Naloxone HCl (Naloxone 2 Mg/2 Ml Syringe) 0.1 mg IVPUSH SEECOMMENT PRN PRN Reason: Respiratory Depression Ondansetron HCl (Ondansetron 4 Mg/2 Ml Sdv) 4 mg IVPUSH Q4H PRN PRN Reason: Nausea/Vomiting Oxycodone/Acetaminophen (Acetaminophen/Oxycodone 325-5 Mg Tab) 1 tab PO Q4H PRN PRN Reason: Pain (moderate 4-6) Oxycodone/Acetaminophen (Acetaminophen/Oxycodone 325-5 Mg Tab) 2 tab PO Q4H PRN PRN Reason: Pain (moderate 4-6) Last Admin: 11/02/20 08:27 Dose: 2 tab Documented by: Prenat Multivit/Acid Splicer/Iron/Folic Ac ( Multivitamin With Calcium/Folic Acid/Iron Tab) 1 each PO DAILY [facility] Last Admin: 11/02/20 08:27 Dose: 1 each Documented by: Simethicone (Simethicone 80 Mg Tab.Chew) 160 mg PO QID [facility] Last Admin: 11/02/20 08:27 Dose: 160 mg Documented by: Sodium Chloride (Sodium Chloride 0.9% 10 Ml Syringe) 10 ml FLUSH ASDIRECTED PRN PRN Reason: Keep Vein Open Last Admin: 11/01/20 01:09 Dose: 10 ml Documented by: - Exam General: Reports: Alert, Oriented HEENT: Reports: Pupils Equal Lungs: Reports: Clear to Auscultation, Normal Respiratory Effort Cardiovascular: Reports: Regular Rate, Regular Rhythm, No Murmurs GI/Abdominal Exam: Soft, No Distention Rectal (Female) Exam: Normal Exam Back Exam: Reports: Normal Inspection Extremities: Pedal Edema (Trace bilaterally) Skin: Reports: Warm, Dry, Intact Wound/Incisions: Reports: Healing Well, No Drainage
== END 2020-11-02 11:37 | disposition home or self-care (01) | DRG 788 ==
LOC: DL.OB 09:58 → UNDOADMOB 09:58 → DL.OB 10:34 → EDSTATUS 12:00 → OBSVTOIN 12:17 → INTOOBSV 12:17 → UNDODISOB 11-02 11:37
PROVIDERS: ADMIT Family Medicine; ATTEND Family Medicine
PROC: 10D00Z1 Extraction of Products of Conception, Low, Open Approach (ICD-10-PCS; principal; 2020-10-31)
DX: O34.211 Maternal care for low transverse scar from previous cesarean delivery (principal); Z3A.39 39 weeks gestation of pregnancy; Z37.0 Single live birth; Z88.5 Allergy status to narcotic agent; Z90.89 Acquired absence of other organs; O99.334 Smoking (tobacco) complicating childbirth; F17.210 Nicotine dependence, cigarettes, uncomplicated; Z20.822 Contact with and (suspected) exposure to COVID-19
CPT/HCPCS: 01961; 36415; 81003; 82565; 82570; 83615; 84156; 84450; 84460; 84520; 84550; 85025; 85027; 86850; 86900; 86901; 94010; A9270-GY; J0690; J1885; J2270; J2590; J7120; U0002

== ENCOUNTER 2024-03-27 23:49 | Emergency (ER) | payer MEDICAID ==
[2024-03-28] MEDS: Take Home: Amoxicillin/Clavulanate K 875-125 MG Tab, 6 Tab Pack PO ONE (00:43)
== END 2024-03-28 00:46 | disposition home or self-care (01) ==
LOC: DL.ED 23:49
DX: S02.5XXA Fracture of tooth (traumatic), initial encounter for closed fracture (principal); F10.939 Alcohol use, unspecified with withdrawal, unspecified; R56.9 Unspecified convulsions; K02.9 Dental caries, unspecified; K04.7 Periapical abscess without sinus; F17.210 Nicotine dependence, cigarettes, uncomplicated; Z90.89 Acquired absence of other organs; Z88.8 Allergy status to other drugs, medicaments and biological substances; Z79.899 Other long term (current) drug therapy; Y90.9 Presence of alcohol in blood, level not specified; X58.XXXA Exposure to other specified factors, initial encounter
CPT/HCPCS: 99284; A9270